=== PATIENT | female | born 1960 | race Caucasian/White ===

== ENCOUNTER 2022-03-11 22:52 | Inpatient (IN) ==
[2022-03-11] MEDS ORDERED: ONDANSETRON INJ 2 MG/ML 2 ML VIAL IV STA (23:54)
[2022-03-11] MEDS ORDERED: SODIUM CHLORIDE 0.9% 1000ML 1,000 ML IV SCH (23:54)
[2022-03-12 00:03] LABS: Basophils # (auto) 0.03 K/uL (0-0.2); Basophils % (auto) 0.3 %; Hematocrit (blood only) 43.8 % (37-47); Hemoglobin 14.6 g/dL (12.0-16.0); Immature Granulocytes # (auto) 0.02 K/uL (0.00-0.02); Immature Granulocytes % (auto) 0.2 %; Lymphocytes # (auto) 1.45 K/uL (1.2-3.4); Mean Corpuscular Hemoglobin 31.3 pg (25-34); Mean Corpuscular Hgb Conc 33.3 g/dL (32-36); Mean Corpuscular Volume 93.8 fL (80-100); Mean Platelet Volume 10.4 fL (7.4-10.4); Monocytes % (auto) 3.9 %; Neutrophils # (auto) 8.34 K/uL (1.4-6.5); Neutrophils % (auto) 80.6 %; Platelet Count 206 K/uL (130-400); RDW Coefficient of Variation 13.8 % (11.5-14.5); RDW Standard Deviation 47.3 fL (36.4-46.3); Red Blood Count 4.67 M/uL (4.2-5.4); White Blood Count 10.34 K/uL (4.8-10.8)
[2022-03-12 00:05] LABS: Appearance Urine Cloudy (Clear); Bacteria Urine Automated Negative (Negative); Bilirubin Urine Negative (Negative); Blood Urine Negative (Negative); Cast Urine Automated 0 /lpf (0-5); Color Urine Dark Yellow; Epithelial Cell Urine Auto >30 /lpf (0-5); Glucose Urine UA Negative (Negative); Ketones Urine Negative (Negative); Leukocyte Esterase Urine 1+ (Negative); Nitrite Urine Negative (Negative); Protein Urine Negative (Negative); Specific Gravity Urine 1.014 (1.000-1.030); Urobilinogen Urine Negative (Negative); pH Urine 7.5 (4.5-7.5)
[2022-03-12 00:22] LABS: Albumin Globulin Ratio 1.3 (0.9-2); Albumin Level 4.2 gm/dl (3.4-5.0); BUN Creatinine Ratio 22.1 (10-20); Calcium 9.5 mg/dl (8.5-10.1); Creatinine Clr Calc Pharmacy 61.6 ml/min; Est GFR (African American) 61.2 ml/min; Est GFR (Non-African American) 52.8 ml/min; Globulin 3.2 gm/dl (2.5-4.0); Potassium 4.4 mmol/L (3.5-5.1); Total Protein 7.4 gm/dl (6.0-8.3)
[2022-03-12] MEDS ORDERED: KETOROLAC TROMETHAMINE 15 MG/ML VIAL IV ONE (00:31)
[2022-03-12] MEDS ORDERED: ONDANSETRON INJ 2 MG/ML 2 ML VIAL IV STA (03:41)
[2022-03-12] MEDS ORDERED: POLYETHYLENE (MIRALAX) 17 GM PACK PO PRN (04:17)
[2022-03-12] MEDS ORDERED: ACETAMINOPHEN 325 MG TAB PO PRN (04:17)
[2022-03-12] MEDS ORDERED: ONDANSETRON INJ 2 MG/ML 2 ML VIAL IV PRN (04:17)
[2022-03-12] MEDS ORDERED: HYDROmorphone INJ 0.5 MG/0.5 ML SYR IV PRN (04:17)
[2022-03-12] MEDS ORDERED: KETOROLAC TROMETHAMINE 15 MG/ML VIAL IV PRN (04:17)
[2022-03-12] MEDS: SODIUM CHLORIDE 0.9% 1000ML 1,000 ML IV SCH ×2 (04:41→13:19)
[2022-03-12] MEDS: cefTRIAXone SODIUM 2,000 MG in DEXTROSE 5% 50 ML IV SCH (05:33)
[2022-03-12 08:25] LABS: Basophils # (auto) 0.02 K/uL (0-0.2); Basophils % (auto) 0.2 %; Eosinophils # (auto) 0.15 K/uL (0-0.5); Eosinophils % (auto) 1.8 %; Hematocrit (blood only) 40.4 % (37-47); Hemoglobin 13.4 g/dL (12.0-16.0); Immature Granulocytes # (auto) 0.02 K/uL (0.00-0.02); Immature Granulocytes % (auto) 0.2 %; Lymphocytes # (auto) 1.87 K/uL (1.2-3.4); Lymphocytes % (auto) 22.7 %; Mean Corpuscular Hemoglobin 31.9 pg (25-34); Mean Corpuscular Hgb Conc 33.2 g/dL (32-36); Mean Corpuscular Volume 96.2 fL (80-100); Mean Platelet Volume 10.6 fL (7.4-10.4); Monocytes # (auto) 0.39 K/uL (0.11-0.59); Monocytes % (auto) 4.7 %; Neutrophils # (auto) 5.77 K/uL (1.4-6.5); Neutrophils % (auto) 70.4 %; Platelet Count 171 K/uL (130-400); RDW Coefficient of Variation 13.8 % (11.5-14.5); RDW Standard Deviation 48.5 fL (36.4-46.3); White Blood Count 8.22 K/uL (4.8-10.8)
[2022-03-12 08:41] LABS: BUN Creatinine Ratio 19.5 (10-20); Calcium 8.9 mg/dl (8.5-10.1); Creatinine Clr Calc Pharmacy 58.5 ml/min; Est GFR (African American) 58.1 ml/min; Est GFR (Non-African American) 50.1 ml/min; Magnesium 2.2 mg/dl (1.7-2.4); Potassium 4.4 mmol/L (3.5-5.1)
--- NOTE | 2022-03-12 08:58 | Emergency Department Note ---
Impression & Plan Right distal ureteral calculus, Hydronephrosis of right kidney, Hydroureter, right ED Provider Note CHIEF COMPLAINT: Kidney stone HISTORY OF PRESENT ILLNESS: Gisela Johnson is a 61 year old female who presents to the Emergency Department for evaluation of a possible kidney stone as she developed a sudden onset of severe pain to her right flank radiating into her right lower abdominal quadrant at 1600 this evening. Since then, the patient has noted a constant pressure-like pain. She has also felt nauseous and vomited x1. Also states that she has had multiple bowel movements since the onset of pain but she denies having diarrhea, melena or hematochezia. Currently, she rates her discomfort as a 6/10 and states that she finally started to have some relief after taking a dose of oxycodone that was leftover from a previous prescription. The patient states that she has history of a right-sided kidney stone about a year ago and states that her symptoms feel similar to that time. She is unsure if she ever passed the stone but did not require additional follow-up regarding this. The patient otherwise denies recent fever/chills, neck pain, palpitations, shortness of breath or flank/abdominal pain prior to the onset today. No other acute complaints. REVIEW OF SYSTEMS: 10 systems were reviewed and were negative unless otherwise stated in HPI as above PHYSICAL EXAM: VITALS: Vitals are noted on the nurse's note and reviewed by myself. Hypertensive, additional vital signs stable. General: Resting in bed, no acute distress HEENT: Normocephalic, atraumatic, PERRL, EOMI, mucous membranes moist, oropharynx clear Neck: Supple, nontender, ROM intact without pain Resp: Good inspiratory effort on room air, lung sounds clear bilaterally CV: Regular rate and rhythm, normal S1/S2, peripheral pulses palpated Back: Tender to palpation and percussion over the right CVA, left side nontender Abd: Obese, soft, mild tenderness palpation over the right lower quadrant and groin. No rebound, guarding or rigidity MSK: Moving all extremities without apparent pain or difficulty Integumentary: Warm, dry, no appreciable rash Neuro: Awake, alert and oriented x 3, interacting and answering questions appropriately Differential diagnosis includes renal colic, UTI, appendicitis, diverticulitis, mesenteric ischemia, aortic pathology, infections, inflammatory bowel disease, PUD, biliary pathology, as well as other pathologies. EMERGENCY DEPARTMENT COURSE: Physical exam and history were performed. Nursing triage notes, EMR, and medication list were personally reviewed. Patient appears to have a possible kidney stone with complaints of sudden onset of severe pain to her right flank radiating into her right lower quadrant region and constant since earlier this evening. Additional history as described above. Physical exam as noted above. The patient was offered medication. IV access was established and she was given NSS 1 L, Zofran 4 mg and Toradol 15 mg. Labs were obtained and reviewed by myself as below. Of note, no concern for leukocytosis today WBC of 10.4. No concern for anemia with hemoglobin 14.6. Electrolytes WNL. Renal indices stable. LFTs nondiagnostic. Urinalysis was obtained and was yellow and cloudy in appearance. 1+ leukocyte esterase, 1030 WBCs and 510 RBCs. Also contamination with >30 epithelial cells. CAT scan of the abdomen and pelvis were obtained and reviewed by radiologist myself as below. Imaging did show an 8 mm right UVJ calculus producing moderate to marked hydronephrosis and moderate hydroureter on the right. There were additional bilateral nonobstructing renal calculi present. No other acute intra-abdominal or pelvic abnormalities identified. Upon reevaluation, the patient was feeling improved after receiving the medications as above. I discussed the results of the above findings with her at bedside. Given the large size of the calculus in the right UVJ, I do not suspect that she will be able to pass this on her own and it is caused hydronephrosis ureter. I do feel that she would benefit from continued management hospital and urological consultation. [facility] and [facility] agreed to evaluate the patient for ongoing management. The patient verbalized her understanding and agreement with the treatment plan as above. The chart was completed utilizing [employer] Speech Voice Recognition Software. Grammatical errors, random word insertions, pronoun errors, and incomplete sentences are an occasional consequence of this system due to software limitations, ambient noise, and hardware issues. Any formal questions or concerns about the content, text, or information contained within the body of this dictation should be directly addressed to the provider for clarification. Past Med/Surg History Medical History Right distal ureteral calculus Surgical History No pertinent past surgical history Social History Smoking Status: Never smoker Second Hand Exposure: No; Do You Dip or Chew Tobacco: No; Hx Alcohol Use: No Hx Substance Use: No Preferred Language: [place] Qatari Communication Ability: Effective Touch Up Worker Required: No Beliefs That Will Affect Care: None Current Living Situation: Spouse and Family Other Information That Helps Us Care for You: No Feels Safe at Home: Yes Safety Concerns: Feels Safe At This Time Assistive Devices: None Allergies Allergies Allergy/AdvReac Type Severity Reaction Status Date / Time lactase [From Dairy Aid] AdvReac Gastrointestinal Unverified 03/12/22 01:12 Upset UNKNOWN ANTIBIOTIC AdvReac Vomiting Uncoded 03/12/22 01:11 Home Meds Home Medications Medication Instructions Recorded Confirmed No Known Home Medications 03/12/22 03/12/22 Results & Data (ED) Vital Signs Vital Signs - 24 hr 03/11/22 23:07 03/12/22 01:14 Temperature 36.4 C L Temperature Source Temporal Artery Scan Pulse Rate 72 Pulse Rate [Finger] 70 Pulse Rhythm [Finger] Regular Pulse Strength [Finger] Normal Respiratory Rate 18 18 Respiratory Effort / Characteristics Non-Labored Spontaneous Respiratory Depth Normal Blood Pressure 160/88 H Blood Pressure [Right Arm] 156/81 H Blood Pressure Mean 112 Blood Pressure Mean [Right Arm] 106 Blood Pressure Position [Right Arm] Lying Pulse Oximetry 97 97 Oxygen Delivery Method Room Air Sepsis Recent Fever Within 48 Hours No Sepsis New/Unexplained Change in Mental Status N/A Sepsis Action Taken by Nursing No Action Required Laboratory Data Result diagrams: 03/12/22 08:02 03/12/22 08:02 Lab Results 03/11/22 03/11/22 03/11/22 Range/Units 23:50 23:50 23:50 WBC 10.34 (4.8-10.8) K/uL RBC 4.67 (4.2-5.4) M/uL Hgb 14.6 (12.0-16.0) g/dL Hct 43.8 (37-47) % MCV 93.8 (80-100) fL MCH 31.3 (25-34) pg MCHC 33.3 (32-36) g/dL RDW Std Deviation 47.3 H (36.4-46.3) fL RDW Coeff of Talya 13.8 (11.5-14.5) % Plt Count 206 (130-400) K/uL MPV 10.4 (7.4-10.4) fL Immature Gran % (Auto) 0.2 % Neut % (Auto) 80.6 % Lymph % (Auto) 14.0 % Garza % (Auto) 3.9 % Eos % (Auto) 1.0 % Baso % (Auto) 0.3 % Neut # (Auto) 8.34 H (1.4-6.5) K/uL Lymph # (Auto) 1.45 (1.2-3.4) K/uL Garza # (Auto) 0.40 (0.11-0.59) K/uL Eos # (Auto) 0.10 (0-0.5) K/uL Baso # (Auto) 0.03 (0-0.2) K/uL Immature Gran # (Auto) 0.02 (0.00-0.02) K/uL Sodium 135 L (136-145) mmol/L Potassium 4.4 (3.5-5.1) mmol/L Chloride 101 (98-107) mmol/L Carbon Dioxide 25 (21-32) mmol/L Anion Gap 9 (3-11) BUN 25 H (6-23) mg/dl Creatinine 1.13 (0.6-1.2) mg/dl Est Cr Clr Drug Dosing 61.6 ml/min Est GFR ( Amer) 61.2 ml/min Est GFR (Non-Af Amer) 52.8 ml/min BUN/Creatinine Ratio 22.1 H (10-20) Glucose 137 H (70-99(Fasting)) mg/dl Calcium 9.5 (8.5-10.1) mg/dl Total Bilirubin 1.0 (0.2-1.0) mg/dl AST 27 (13-39) U/L ALT 26 (7-52) U/L Alkaline Phosphatase 70 (34-104) U/L Total Protein 7.4 (6.0-8.3) gm/dl Albumin 4.2 (3.4-5.0) gm/dl Globulin 3.2 (2.5-4.0) gm/dl Albumin/Globulin Ratio 1.3 (0.9-2) Urine Color Dark Yellow Urine Appearance Cloudy A (Clear) Urine pH 7.5 (4.5-7.5) Ur Specific [place] 1.014 (1.000-1.030) Urine Protein Negative (Negative) Urine Glucose (UA) Negative (Negative) Urine Ketones Negative (Negative) Urine Blood Negative (Negative) Urine Nitrite Negative (Negative) Urine Bilirubin Negative (Negative) Urine Urobilinogen Negative (Negative) Ur Leukocyte Esterase 1+ H (Negative) Urine WBC (Auto) 10-30 H (0-5) /hpf Urine RBC (Auto) 5-10 H (0-4) /hpf U Hyaline Cast (Auto) 0 (0-5) /lpf U Epithel Cells (Auto) >30 H (0-5) /lpf Urine Bacteria (Auto) Negative (Negative) SARS-CoV-2, RNA, NAAT (NEGATIVE) 03/12/22 Range/Units 02:43 WBC (4.8-10.8) K/uL RBC (4.2-5.4) M/uL Hgb (12.0-16.0) g/dL Hct (37-47) % MCV (80-100) fL MCH (25-34) pg MCHC (32-36) g/dL RDW Std Deviation (36.4-46.3) fL RDW Coeff of Talya (11.5-14.5) % Plt Count (130-400) K/uL MPV (7.4-10.4) fL Immature Gran % (Auto) % Neut % (Auto) % Lymph % (Auto) % Garza % (Auto) % Eos % (Auto) % Baso % (Auto) % Neut # (Auto) (1.4-6.5) K/uL Lymph # (Auto) (1.2-3.4) K/uL Garza # (Auto) (0.11-0.59) K/uL Eos # (Auto) (0-0.5) K/uL Baso # (Auto) (0-0.2) K/uL Immature Gran # (Auto) (0.00-0.02) K/uL Sodium (136-145) mmol/L Potassium (3.5-5.1) mmol/L Chloride (98-107) mmol/L Carbon Dioxide (21-32) mmol/L Anion Gap (3-11) BUN (6-23) mg/dl Creatinine (0.6-1.2) mg/dl Est Cr Clr Drug Dosing ml/min Est GFR ( Amer) ml/min Est GFR (Non-Af Amer) ml/min BUN/Creatinine Ratio (10-20) Glucose (70-99(Fasting)) mg/dl Calcium (8.5-10.1) mg/dl Total Bilirubin (0.2-1.0) mg/dl AST (13-39) U/L ALT (7-52) U/L Alkaline Phosphatase (34-104) U/L Total Protein (6.0-8.3) gm/dl Albumin (3.4-5.0) gm/dl Globulin (2.5-4.0) gm/dl Albumin/Globulin Ratio (0.9-2) Urine Color Urine Appearance (Clear) Urine pH (4.5-7.5) Ur Specific [place] (1.000-1.030) Urine Protein (Negative) Urine Glucose (UA) (Negative) Urine Ketones (Negative) Urine Blood (Negative) Urine Nitrite (Negative) Urine Bilirubin (Negative) Urine Urobilinogen (Negative) Ur Leukocyte Esterase (Negative) Urine WBC (Auto) (0-5) /hpf Urine RBC (Auto) (0-4) /hpf U Hyaline Cast (Auto) (0-5) /lpf U Epithel Cells (Auto) (0-5) /lpf Urine Bacteria (Auto) (Negative) SARS-CoV-2, RNA, NAAT NEGATIVE (NEGATIVE) Administered Medications Sodium Chloride (Nss 1000ml) 1,000 mls @ 75 mls/hr IV .[id number] LAZARUS Stop: 04/11/22 04:16 Last Admin: 03/12/22 13:19 Dose: 125 mls/hr Documented by: [id number] Infusion: 03/12/22 12:41 Dose: 125 mls/hr Documented by: [id number] Admin: 03/12/22 04:41 Dose: 125 mls/hr Documented by: [id number] Ceftriaxone Sodium 2,000 mg/ (Dextrose) 70 mls @ 100 mls/hr IV Q24H LAZARUS; P rotocol Stop: 03/22/22 05:59 Last Infusion: 03/12/22 06:15 Dose: 0 mls/hr Documented by: [id number] Admin: 03/12/22 05:33 Dose: 100 mls/hr Documented by: [id number] Discontinued Medications Sodium Chloride (Nss 1000ml) 1,000 mls @ 999 mls/hr IV .[id number] LAZARUS Stop: 03/12/22 00:54 Last Infusion: 03/12/22 01:20 Dose: 0 mls/hr Documented by: [id number] Admin: 03/12/22 00:01 Dose: 999 mls/hr Documented by: [id number] Ketorolac Tromethamine (Ketorolac Tromethamine 15 Mg/Ml Vial) 15 mg IV NOW ONE Stop: 03/12/22 00:32 Last Admin: 03/12/22 00:47 Dose: 15 mg Documented by: [id number] Ondansetron HCl (Ondansetron Inj 2 Mg/Ml 2 Ml Vial) 4 mg IV NOW STA Stop: 03/11/22 23:55 Last Admin: 03/12/22 02:59 Dose: Not Given Documented by: [id number] Ondansetron HCl (Ondansetron Inj 2 Mg/Ml 2 Ml Vial) 4 mg IV NOW STA Stop: 03/12/22 03:42 Last Admin: 03/12/22 05:38 Dose: Not Given Documented by: [id number] Imaging Data Radiologist's Impression: Abdomen/Pelvis CT 03/11/22 23:53 CT abd pelvis wo con CLINICAL HISTORY: R flank pain radiating into RLQ, history stone COMPARISON STUDY: 04/21/2021 CT DOSE: 1393.73 mGy.cm TECHNIQUE: Standard CT of the Abdomen and Pelvis was performed without IV contrast. The patient did not receive oral contrast. A dose lowering technique was utilized adhering to the principles of ALARA. FINDINGS: Lung base: There is minimal right basilar atelectasis. Abdominal cavity: There is no evidence for abdominal mass, adenopathy or ascites. Liver: The liver is homogeneous in attenuation on these limited noncontrast images.. Spleen: The spleen is homogeneous in attenuation on these limited noncontrast images. Pancreas: The pancreas is homogeneous in attenuation on these limited noncontrast images. Gall Bladder: The gallbladder is absent. Adrenal glands: The adrenal glands are normal in size and attenuation on these limited noncontrast images. Kidneys: There is again swelling of the right kidney when compared to the left with perinephric stranding present. There is moderate to marked hydronephrosis and moderate hydroureter present to the level of the bladder. 8 mm calculus is seen at the right UVJ producing the obstruction present. Numerous additional nonobstructing bilateral renal calculi are present. There is no left-sided hydronephrosis. There is no gross renal mass on these limited noncontrast images. Bowel: The bowel loops are normally placed within the abdomen and pelvis without evidence for dilatation or obstruction. There is no evidence for mass lesion. There are no inflammatory changes present. There is no evidence for free air. Bladder: There is no evidence for focal bladder wall thickening, calculus or diverticulum. : There is no evidence for pelvic mass or adenopathy. Vasculature: There is no evidence for focal aneurysmal dilatation of the ab dominal aorta. Osseous structures: There is no acute osseous pathology. Degenerative changes are present within the spine with grade 1/4 spondylolisthesis of L4 on L5. IMPRESSION: 1. 8 mm right UVJ calculus producing moderate to marked hydronephrosis and moderate hydroureter on the right. 2. Additional bilateral nonobstructing renal calculi are present. 3. No other evidence for acute intra-abdominal or pelvic abnormality on these limited noncontrast images. 4. Additional nonacute findings are delineated above ACT 112: Negative or not required by law. Electronically signed by: Clayton Cha M.D. 03/12/2022 10:18 AM Discharge Plan Visit Data Chief Complaint: Kidney Stone Stated Complaint: KIDNEY STONE, FLANK PAIN ED Provider: Nancy Duenas ED Midlevel Provider: Joan Walton Discharge Problem: Right distal ureteral calculus, Hydronephrosis of right kidney, Hydroureter, right Patient Disposition: Admitted As Inpatient Discharge Instructions Interventions: ED Discharge Assessment Last Done: 03/12/22 04:04
--- NOTE | 2022-03-12 09:03 | Ultrasound Report ---
US venous doppler LE RT CLINICAL HISTORY: Right lower extremity pain and swelling COMPARISON: None available at the time of this dictation. TECHNIQUE: Right lower extremity real-time compression venous ultrasound with Color Doppler imaging. Utilizing real-time ultrasonic imaging multiple real time high-resolution ultrasonic images with comp ression and noncompression maneuvers of the deep venous system in addition to color doppler imaging w ere performed from the common femoral vein through the proximal calf veins. FINDINGS: Currently there is normal compressibility of the deep venous system from the common femoral vein thro ugh the proximal calf veins. No current evidence of acute thrombosis is identified. Impression: No evidence of deep venous thrombus. ACT 112: Negative or not required by law. Electronically signed by: Clayton Cha M.D. 03/12/2022 9:01 AM
--- NOTE | 2022-03-12 09:17 | History and Physical Report ---
DATE OF ADMISSION: 03/12/2022. CHIEF COMPLAINT: Right flank pain. HISTORY OF PRESENT ILLNESS: This is a 61-year-old female with past medical history significant for history of kidney stones, history of right lower extremity cellulitis, presents with right flank pain starting at 4:00 p.m., severe pain associated with nausea, vomiting. She almost passed out because of pain, so came to the ER and found to have 10 mm right UVJ kidney stone. Currently with the pain medications she is feeling better. She still has some uncomfortable feeling in the stomach. During the episode, she had several episodes of diarrhea. Denies any blood in the stools, no burning micturition. No fevers, no chest pain, no shortness of breath, no cough, has some headache she thinks from the pain medication. No blurred visions, no earache, no runny nose, no sore throat. Appetite is okay. No difficulty swallowing. The patient does not have PCP. ALLERGY: SHE IS ALLERGIC TO DIARY. PAST MEDICAL HISTORY: As mentioned above. PAST SURGICAL HISTORY: Cholecystectomy, tonsillectomy. MEDICATIONS: None. FAMILY HISTORY: Father has Alzheimer disease. SOCIAL HISTORY: No smoking, no alcohol. Lives with her . REVIEW OF SYSTEMS: As per HPI. Rest of review of systems is negative. PHYSICAL EXAMINATION: GENERAL: The patient is of moderate build, not in acute distress. VITAL SIGNS: Temperature 36.4, pulse 107, respiratory rate 18, blood pressure 156/81, oxygen 97% on room air. HEENT: Pupils equal, round and reactive to light. Oral mucosa moist. LUNGS: No JVD. No neck masses. CARDIOVASCULAR: S1 and S2 heard. Regular rate and rhythm. No murmur, no gallop. RESPIRATORY SYSTEM: Normal AP diameter. No accessory muscle use. No wheezing, no crackles. ABDOMEN: Soft. Bowel sounds are present, nontender, no distention. No CVA tenderness. CENTRAL NERVOUS SYSTEM: Cranial nerves II-XII grossly intact, nonfocal. EXTREMITIES: The right lower extremity is slightly more erythematous and edematous. No erythema, no tenderness seen. LABORATORY DATA: WBC 10, hemoglobin 14.6, hematocrit 43.8, platelets 206. Sodium 135, potassium 4.4, chloride 101, bicarb 25, BUN 25, creatinine 1.1, serum glucose 137, calcium 9.4, total bilirubin 1.0, AST 27, ALT 26, alkaline phosphatase 70. Urinalysis cloudy, +1 leukocyte esterase. Rapid COVID test negative. IMAGING: CT of abdomen and pelvis without contrast shows 12 x 6 x 8 mm stone at the right UVJ junction, moderate right hydroureteronephrosis and right perinephric edema, nonobstructing renal stones bilaterally. ASSESSMENT AND PLAN: This is a 61-year-old female who presents with right renal colic. 1. Right renal colic about 12 mm right ureterovesical junction kidney stone, possible urinary tract infection, placed on n.p.o., IV fluids, IV Rocephin, IV Dilaudid and IV Toradol p.r.n. Consult Urology. We will keep n.p.o. until seen by Urology and monitor in the medical floor. 2. Hypotension, possible situational. Does not have family doctor, needs to follow with doctor. 3. Morbid obesity. Needs counseling. Needs to follow up with PCP. 4. Deep venous thrombosis prophylaxis: Sequential compression devices for now. 5. The patient also has right lower extremity swelling, patient says it is going on for the last couple of weeks. No tenderness. We will get an ultrasound to rule out deep venous thrombosis. DISPOSITION: Closely monitor in the medical floor. PT/OT prior to discharge. Social Service to help with discharge planning. Job ID: [id number] [facility]
--- NOTE | 2022-03-12 10:21 | CT Scan Report ---
CT abd pelvis wo con CLINICAL HISTORY: R flank pain radiating into RLQ, history stone COMPARISON STUDY: 04/21/2021 CT DOSE: 1393.73 mGy.cm TECHNIQUE: Standard CT of the Abdomen and Pelvis was performed without IV contrast. The patient did not receive oral contrast. A dose lowering technique was utilized adhering to the principles of ANJEL Polo FINDINGS: Lung base: There is minimal right basilar atelectasis. Abdominal cavity: There is no evidence for abdominal mass, adenopathy or ascites. Liver: The liver is homogeneous in attenuation on these limited noncontrast images.. Spleen: The spleen is homogeneous in attenuation on these limited noncontrast images. Pancreas: The pancreas is homogeneous in attenuation on these limited noncontrast images. Gall Bladder: The gallbladder is absent. Adrenal glands: The adrenal glands are normal in size and attenuation on these limited noncontrast im ages. Kidneys: There is again swelling of the right kidney when compared to the left with perinephric stran ding present. There is moderate to marked hydronephrosis and moderate hydroureter present to the leve l of the bladder. 8 mm calculus is seen at the right UVJ producing the obstruction present. Numerous additional nonobstructing bilateral renal calculi are present. There is no left-sided hydronephrosis. There is no gross renal mass on these limited noncontrast images. Bowel: The bowel loops are normally placed within the abdomen and pelvis without evidence for dilatat ion or obstruction. There is no evidence for mass lesion. There are no inflammatory changes present. There is no evidence for free air. Bladder: There is no evidence for focal bladder wall thickening, calculus or diverticulum. : There is no evidence for pelvic mass or adenopathy. Vasculature: There is no evidence for focal aneurysmal dilatation of the abdominal aorta. Osseous structures: There is no acute osseous pathology. Degenerative changes are present within the spine with grade 1/4 spondylolisthesis of L4 on L5. IMPRESSION: 1. 8 mm right UVJ calculus producing moderate to marked hydronephrosis and moderate hydroureter on th e right. 2. Additional bilateral nonobstructing renal calculi are present. 3. No other evidence for acute intra-abdominal or pelvic abnormality on these limited noncontrast radha ges. 4. Additional nonacute findings are delineated above ACT 112: Negative or not required by law. Electronically signed by: Clayton Cha M.D. 03/12/2022 10:18 AM
--- NOTE | 2022-03-12 13:02 | Urology Consultation ---
Date of Consultation March 12, 2022 Assessment & Plan (1) Right distal ureteral calculus: Patient with approximately 8 mm distal right stone near the UVJ. Patient had presented with severe pain and nausea and vomiting. Has drastically improved over the last few hours. Is now complaining of being pain-free. Has been tolerating IV hydration. Discussed options for conservative measure and maximum expulsion medical therapy and symptom controlled. Discussed ESWL. Discussed Ureteroscopy with extraction and/or laser lithotripsy. Risks and benefits were discussed. Stone free rates were also discussed as well as possibility of multiple procedures. Ureteral stents were discussed as well as post-operative issues and pain management. All questions were answered. As patient has significantly improved. We will plan to set up for imaging today. Will likely be able to start diet and oral hydration depending on imaging. Will likely need followup in office in next few months if stone has passed. If not can make NPO overnight and consider stone treatment/stent. Will monitor. JEFFREY and KUB ordered. Patient complicated medical and surgical histories reviewed and summarized above. All imaging was reviewed interpreted by myself. Patient with significant hydronephrosis and hydroureter to calcification in the distal ureter likely representing stone on right side in distal ureter History of Present Illness Attending Physician: Stephon Manuel MD History of Present Illness New consultation for patient with stone, discomfort, obstruction, and ill feelings. Patient developed sudden onset of pain into flank going down and radiating into groin and back in waves comes and goes. Can be severe at times. Patient was having severe nausea with major pain episodes. Has previously had stones. Has had need for intervention in the past due to stone disease. Discussed and reviewed patient's family history for any history of stone disease. Does have family history. Also, discussed patient's medical surgery history especially related to any history of urinary issues or stone disease. Patient has history of gallstones as well with cholecystectomy. Patient was admitted and is undergoing observation. Has been undergoing maximum expulsion therapy with control with pain meds and monitoring. Patient has drastically improved over the last few hours. Is at this point nearly pain- free. Has not had considerable exacerbation of issues. Was having major episodes over the night however this is drastically improved. Patient has been monitoring for stone passage and has yet seeded with urination. Has been urinating frequently due to IV fluids. Patient has not seen any blood at this point. Allergies Allergy/AdvReac Type Severity Reaction Status Date / Time lactase [From Dairy Aid] AdvReac Gastrointestinal Unverified 03/12/22 01:12 Upset UNKNOWN ANTIBIOTIC AdvReac Vomiting Uncoded 03/12/22 01:11 Home Medications Medication Instructions Recorded Confirmed Type No Known Home Medications 03/12/22 03/12/22 History Patient History Social History Smoking Status: Never smoker Second Hand Exposure: No; Do You Dip or Chew Tobacco: No; Hx Alcohol Use: No Hx Substance Use: No Preferred Language: Ian South African Communication Ability: Effective Information Technology Account Manager Required: No Beliefs That Will Affect Care: None Current Living Situation: Spouse and Family Other Information That Helps Us Care for You: No Feels Safe at Home: Yes Safety Concerns: Feels Safe At This Time Assistive Devices: None Review of Systems Review of Systems: All systems reviewed & are unremarkable except as noted in HPI & below Physical Exam Physical Exam: General: Alert and oriented x 3 in no acute distress. Patient is well nourished and well kept. Obese. HEENT: Normocephalic Atraumatic. Inspection normal. Cranial Nerves 2-12 Grossly intact. Nares are clear. Neck is supple. Normal inspection of face. Normal inspection of neck. Neurologic: No deficits on inspection. Baseline for motor function and sensory. Psychologic: Normal affect. Respiratory: Nonlabored. No use of accessory muscles. No tachypnea or dyspnea. Cardiovascular: No tachycardia Skin: [place] and Dry. No rashes or visible lesions. Extremities: Moving without issues. No motor deficits on inspection Lymphatics: No edema Abdomen: Soft Non-distended. No acites. No rebound or guarding. Results & Data ([facility]) Vital Signs (Past 12 Hours) Vital Signs Temp Pulse Pulse Resp BP BP Pulse Ox 03/12/22 07:38 37 C 67 18 118/74 94 03/12/22 04:20 37.1 C 68 18 139/84 99 03/12/22 04:08 82 18 134/76 96 03/12/22 01:14 70 18 156/81 H 97 PG Care Time/CCT Total # of Minutes Spent Total Time Spent with Patient: Total time spent is greater than 50% in coordination of care (as documented) at patient's floor/unit and/or counseling patient: Coding Level of Care Code 11110 Inpt Consult Level 5 Diagnoses Right distal ureteral calculus N20.1
--- NOTE | 2022-03-12 14:28 | XRay Report ---
XR KUB/Abdomen 1 view CLINICAL HISTORY: Abdominal pain.. COMPARISON STUDY: No previous studies for comparison. TECHNIQUE: 2 supine radiographs were obtained. FINDINGS: There are air-filled loops of large and small bowel without evidence for disproportionate dilatation or obstruction. This can be seen with an ileus versus gastroenteritis. There is no evidence for organ omegaly or gross intra-abdominal mass. No abnormal calcifications are seen along the course of the ur inary tracts bilaterally. No acute osseous pathology. IMPRESSION: 1. Radiographic findings suspicious for ileus versus gastroenteritis. ACT 112: Negative or not required by law. Electronically signed by: Clayton Cha M.D. 03/12/2022 2:26 PM
--- NOTE | 2022-03-12 16:18 | Hospitalist Progress Note ---
Date of Service March 12, 2022 Assessment & Plan (1) Right distal ureteral calculus: Plan: Patient is a 61 yr female who presents with right renal colic. Right distal ureteral calculus Hydroureteronephrosis --CT ABD:8 mm right UVJ calculus producing moderate to marked hydronephrosis and moderate hydroureter on the right. Additional bilateral nonobstructing renal calculi are present. No other evidence for acute intra-abdominal or pelvic abnormality on these limited noncontrast images. Additional nonacute findings are delineated above --Renal USD:pending --Pain Control --Continue IV fluids Started on Flomax Appreciate urology input Needs follow-up with urology upon discharge Abnormal UA Rule out UTI Urine culture pending Empirically continue Rocephin Suspected Ileus KUB:Radiographic findings suspicious for ileus versus gastroenteritis. Monitor Recheck KUB in a.m. Hypotension possible situational Continue IV fluids Monitor Morbid obesity BMI 43 Lower Extremity Edema: Venous Doppler:No evidence of deep venous thrombus. Check ECHO DVT Px: SCDs for now Admission and Anticipated Discharge Date Admission Date: March 12, 2022 Subjective Seen and examined at bedside Flank pain resolved Denies any dysuria, hematuria, abdominal pain, chest pain, dyspnea Offers no other complaints Review of Systems Review of Systems: All systems reviewed & are unremarkable except as noted in Subjective Physical Exam Physical Exam: Physical Exam: Vitals signs as noted above General Appearance:Obese, no apparent distress Head: normocephalic, Atraumatic Eyes: normal inspection, EOMI Neck: supple, Trachea midline Respiratory/Chest: Normal breath sounds, CTA, No accessory muscle use Cardiovascular: S1, S2, No murmur Abdomen/GI:Soft, Non tender, Bowel sounds present Extremities/Musculoskeletal:normal inspection, Trace edema Neurologic/Psych:AAOX3, grossly no focal neurological deficits Skin: normal color, warm Results & Data Results & Data ([facility]) Vital Signs (Past 12 Hours) Vital Signs Temp Pulse Pulse Resp BP BP Pulse Ox 03/12/22 15:55 37 C 03/12/22 15:42 65 16 120/69 99 03/12/22 07:38 37 C 67 18 118/74 94 03/12/22 04:20 37.1 C 68 18 139/84 99 Laboratory Results Short CBC 03/11/22 03/12/22 Range/Units 23:50 08:02 WBC 10.34 8.22 (4.8-10.8) K/uL Hgb 14.6 13.4 (12.0-16.0) g/dL Hct 43.8 40.4 (37-47) % Plt Count 206 171 (130-400) K/uL BMP 03/11/22 03/12/22 23:50 08:02 Sodium 135 L 139 Potassium 4.4 4.4 Chloride 101 107 Carbon Dioxide 25 27 BUN 25 H 23 Creatinine 1.13 1.18 Glucose 137 H 107 H Calcium 9.5 8.9 Liver Function 03/11/22 Range/Units 23:50 Total Bilirubin 1.0 (0.2-1.0) mg/dl AST 27 (13-39) U/L ALT 26 (7-52) U/L Alkaline Phosphatase 70 (34-104) U/L Albumin 4.2 (3.4-5.0) gm/dl Urine 03/11/22 Range/Units 23:50 Urine Color Dark Yellow Urine Appearance Cloudy A (Clear) Urine pH 7.5 (4.5-7.5) Ur Specific [place] 1.014 (1.000-1.030) Urine Protein Negative (Negative) Urine Glucose (UA) Negative (Negative)
[2022-03-12] MEDS ORDERED: TAMSULOSIN HCL 0.4 MG CAP PO SCH (21:00)
[2022-03-13] MEDS: SODIUM CHLORIDE 0.9% 1000ML 1,000 ML IV SCH (02:34)
[2022-03-13] MEDS: cefTRIAXone SODIUM 2,000 MG in DEXTROSE 5% 50 ML IV SCH (06:21)
[2022-03-13 08:02] LABS: BUN Creatinine Ratio 19.4 (10-20); Calcium 8.7 mg/dl (8.5-10.1); Est GFR (African American) 68.4 ml/min; Potassium 4.2 mmol/L (3.5-5.1)
--- NOTE | 2022-03-13 08:03 | Ultrasound Report ---
RENAL ULTRASOUND CLINICAL HISTORY: Right flank pain. Evaluate for hydronephrosis. COMPARISON STUDY: CT of the abdomen and pelvis March 12, 2022. TECHNIQUE: Sonography of the kidneys and the urinary bladder was performed. FINDINGS: Right kidney measures 10.2 x 4.3 x 4 cm and the left kidney measures 10.3 x 5.3 x 4.6 cm. M oderate bilateral renal cortical thinning is present. Right hydronephrosis shown on CT of March 12 has resolved. Distal right ureteral calculus on that exam is not visualized but could be occult by sonography. The bilateral renal calculi shown on that exam are not well-visualized by sonography. Bl adder is obscured. IMPRESSION: 1. Resolution of right hydronephrosis since CT of March 12, 2022. Distal right ureteral calculus on CT not visualized but could be occult by sonography. 2. Bilateral renal calculi on prior CT occult by sonography. ACT 112: Negative or not required by law. Electronically signed by: Adriano Cruz M.D. 03/13/2022 8:02 AM
--- NOTE | 2022-03-13 09:48 | XRay Report ---
KUB CLINICAL HISTORY: Ileus, Renal stone COMPARISON STUDY: CT of the abdomen and pelvis and KUB March 12, 2022. FINDINGS: A 1.4 x 0.8 cm right ureterovesical junction calculus is unchanged in position since prior CT of March 12, 2022. Numerous small bilateral renal calculi are noted. There is no evidence for a bow el obstruction. No additional ureteral calculi are identified. IMPRESSION: 1. No change in position of a 1.4 x 0.8 cm right ureterovesical junction calculus. 2. Bilateral nephrolithiasis. ACT 112: Negative or not required by law. Electronically signed by: Adriano Cruz M.D. 03/13/2022 9:46 AM
--- NOTE | 2022-03-13 10:56 | Urology Progress Note ---
Date of Service March 13, 2022 Assessment & Plan (1) Right distal ureteral calculus: (2) Hydronephrosis of right kidney: Plan: 61yo F admitted with intractable right flank pain with associated nausea vomiting secondary to a 8 mm right UVJ calculus producing moderate to marked hydronephrosis and moderate hydroureter on the right. - Subjectively feeling well this morning, no reported pain. - KUB with no change in position of a 1.4 x 0.8 cm right ureterovesical junction calculus. - Renal ultrasound showing resolution of right hydronephrosis since CT of March 12, 2022, distal right ureteral calculus on CT not visualized. - Afebrile, hemodynamically stable, non-toxic appearing. - Labs reviewed - No leukocytosis, renal function normal. - Urine culture final with low counts mixed probable skin jose r. - Discussed possible acute stone management with cystoscopy and stent placement. Ureteral stents were discussed as well as post-operative issues and pain management. Discussed that she would need an additional procedure for stone treatment in the future. Risks/ benefits discussed. Plan- - Given she remains asymptomatic and is stable from a perspective, pt prefers to follow-up as an outpatient to arrange definitive stone treatment. - No acute intervention planned at this time. - OK for d/c from perspective. - Reviewed in detail signs/symptoms that would warrant return to the hospital, patient verbalized an understanding. - Patient agreeable to plan, all questions were answered. - Thank you for allowing us to participate in the acute care of Mrs. Jhonson. Please reconsult us with additional questions, concerns or changes in patient status. Admission and Anticipated Discharge Date Admission Date: March 12, 2022 Supervising Physician Co-Signing Physician Notes I have discussed Ms. Johnson's case with CHENG Garcia and agree with the above documentation. Overall she is doing well, not having any fevers and has good renal function. Since her pain is controlled, there is no indication for urgent intervention. We will plan to see her as an outpatient and discuss definitive stone management. Subjective Pt examined at bedside this AM. Awake, sitting in bedside chair on arrival. Subjectively feeling well this morning. Denies back, flank, and abdominal pain. No fevers or chills. Denies nausea or vomiting. Voiding without issue. No hematuria or dysuria. Review of Systems Constitutional: as per Subjective / HPI Gastrointestinal: as per Subjective / HPI Genitourinary: as per Subjective / HPI Physical Exam Constitutional: cooperative and comfortable; no acute distress Respiratory: normal respiratory effort; no respiratory distress and no labored breathing Gastrointestinal (Abdomen): Inspection/Auscultation: abdomen normal to inspection Percussion/Palpation: abdomen soft; abdomen nontender and no guarding Neurologic: awake Psychiatric: A+Ox3, euthymic affect Genitourinary: no CVA tenderness Results & Data ([facility]) Vital Signs (Past 12 Hours) Vital Signs Temp Pulse Resp BP BP Pulse Ox 03/13/22 08:25 36.9 C 69 16 132/80 97 03/12/22 23:17 36.9 C 66 16 118/78 97 PG Care Time/CCT Total # of Minutes Spent Total Time Spent with Patient: Total time spent is greater than 50% in coordination of care (as documented) at patient's floor/unit and/or counseling patient: Coding Level of Care Code 15480 Subseq Hosp Care Lvl 2 Diagnoses Right distal ureteral calculus N20.1 Hydronephrosis of right kidney N13.30
--- NOTE | 2022-03-13 12:59 | Hospitalist Progress Note ---
Date of Service March 13, 2022 Assessment & Plan (1) Right distal ureteral calculus: Plan: Patient is a 61 yr female who presents with right renal colic. Right distal ureteral calculus Hydroureteronephrosis --CT ABD:8 mm right UVJ calculus producing moderate to marked hydronephrosis and moderate hydroureter on the right. Additional bilateral nonobstructing renal calculi are present. No other evidence for acute intra-abdominal or pelvic abnormality on these limited noncontrast images. Additional nonacute findings are delineated above --Renal USD:Resolution of right hydronephrosis since CT of March 12, 2022. Distal right ureteral calculus on CT not visualized but could be occult by sonography. Bilateral renal calculi on prior CT occult by sonography. --Pain Control --Continue IV fluids Continue Flomax Appreciate urology input Needs follow-up with urology upon discharge KUB showed persistent ureteral stone As patient asymptomatic currently, urology recommends to follow-up with Dr. Jay as outpatient UTI ruled out Urine culture: Negative Discontinue Rocephin Suspected Ileus KUB:Radiographic findings suspicious for ileus versus gastroenteritis. Monitor Recheck KUB: No Ileus Hypotension possible situational Continue IV fluids Monitor Morbid obesity BMI 43 Lower Extremity Edema: Venous Doppler:No evidence of deep venous thrombus. DVT Px: SCDs for now Admission and Anticipated Discharge Date Admission Date: March 12, 2022 Subjective Seen and examined at bedside States feeling well today No recurrence of flank pain Discussed with urology today Denies any dysuria, hematuria, abdominal pain, chest pain, dyspnea Plan to discharge home today Review of Systems Review of Systems: All systems reviewed & are unremarkable except as noted in Subjective Physical Exam Physical Exam: Physical Exam: Vitals signs as noted above General Appearance:Obese, no apparent distress Head: normocephalic, Atraumatic Eyes: normal inspection, EOMI Neck: supple, Trachea midline Respiratory/Chest: Normal breath sounds, CTA, No accessory muscle use Cardiovascular: S1, S2, No murmur Abdomen/GI:Soft, Non tender, Bowel sounds present Extremities/Musculoskeletal:normal inspection, Trace edema Neurologic/Psych:AAOX3, grossly no focal neurological deficits Skin: normal color, warm Results & Data Results & Data ([facility]) Vital Signs (Past 12 Hours) Vital Signs Temp Pulse Resp BP Pulse Ox 03/13/22 08:25 36.9 C 69 16 132/80 97 Laboratory Results BMP 06/13/22 07:03 Sodium 138 Potassium 4.2 Chloride 107 Carbon Dioxide 25 BUN 20 Creatinine 1.03 Glucose 113 H Calcium 8.7
--- NOTE | 2022-03-13 13:05 | Discharge Summary ---
Date of Service March 13, 2022 Admission HPI Per Admitting Provider CHIEF COMPLAINT: Right flank pain. HISTORY OF PRESENT ILLNESS: This is a 61-year-old female with past medical history significant for history of kidney stones, history of right lower extremity cellulitis, presents with right flank pain starting at 4:00 p.m., severe pain associated with nausea, vomiting. She almost passed out because of pain, so came to the ER and found to have 10 mm right UVJ kidney stone. Curren tly with the pain medications she is feeling better. She still has some uncomfortable feeling in the stomach. During the episode, she had several episodes of diarrhea. Denies any blood in the stools, no burning micturition. No fevers, no chest pain, no shortness of breath, no cough, has some headache she thinks from the pain medication. No blurred visions, no earache, no runny nose, no sore throat. Appetite is okay. No difficulty swallowing. Admission Exam Per Admitting Provider PHYSICAL EXAMINATION: GENERAL: The patient is of moderate build, not in acute distress. VITAL SIGNS: Temperature 36.4, pulse 107, respiratory rate 18, blood pressure 156/81, oxygen 97% on room air. HEENT: Pupils equal, round and reactive to light. Oral mucosa moist. LUNGS: No JVD. No neck masses. CARDIOVASCULAR: S1 and S2 heard. Regular rate and rhythm. No murmur, no gallop. RESPIRATORY SYSTEM: Normal AP diameter. No accessory muscle use. No wheezing, no crackles. ABDOMEN: Soft. Bowel sounds are present, nontender, no distention. No CVA tenderness. CENTRAL NERVOUS SYSTEM: Cranial nerves II-XII grossly intact, nonfocal. EXTREMITIES: The right lower extremity is slightly more erythematous and edematous. No erythema, no tenderness seen. Principal Diagnosis Right distal ureteral calculus Hydroureteronephrosis Leg Edema Discharge Data Allergies Allergy/AdvReac Type Severity Reaction Status Date / Time lactase [From Dairy Aid] AdvReac Gastrointestinal Unverified 03/12/22 01:12 Upset UNKNOWN ANTIBIOTIC AdvReac Vomiting Uncoded 03/12/22 01:11 Consultations 03/12/22 02:49 ED Decision to Admit Stat 03/12/22 08:00 Consult Urology Routine Ordered Studies 03/11/22 23:53 CT abd pelvis wo con Urgent 03/12/22 04:17 US venous doppler LE RT Routine 03/12/22 13:00 US Renal Bladder [US renal/blad retro comp] Urgent Hospital Course (1) Right distal ureteral calculus: Patient is a 61 yr female who presents with right renal colic. Right distal ureteral calculus Hydroureteronephrosis --CT ABD:8 mm right UVJ calculus producing moderate to marked hydronephrosis and moderate hydroureter on the right. Additional bilateral nonobstructing renal calculi are present. No other evidence for acute intra-abdominal or pelvic abnormality on these limited noncontrast images. Additional nonacute findings are delineated above --Renal USD:Resolution of right hydronephrosis since CT of March 12, 2022. Distal right ureteral calculus on CT not visualized but could be occult by sonography. Bilateral renal calculi on prior CT occult by sonography. --Pain Control --Continue IV fluids Continue Flomax Appreciate urology input Needs follow-up with urology upon discharge KUB showed persistent ureteral stone As patient asymptomatic currently, urology recommends to follow-up with Dr. Jay as outpatient UTI ruled out Urine culture: Negative Discontinue Rocephin Suspected Ileus KUB:Radiographic findings suspicious for ileus versus gastroenteritis. Monitor Recheck KUB: No Ileus Hypotension possible situational Continue IV fluids Monitor Morbid obesity BMI 43 Lower Extremity Edema: Venous Doppler:No evidence of deep venous thrombus. DVT Px: SCDs for now Total Time Total Time Spent Total Time Spent (In Minutes): 40 minutes Discharge Plan Discharge Items Reason For Visit: KIDNEY STONE Discharge Diagnosis: Right distal ureteral calculus Hydroureteronephrosis Leg Edema Activity: Per Instructions section Exercise/Sports: Wait until after follow-up appointment Non-emergency contact: Primary Care Provider and Urologist Call non-emergency contact if: you have any medication questions, your symptoms worsen, your pain is not controlled, your pain is concerning for you and you have a fever Follow-up/Referrals: PCP,NO [Primary Care Provider] - Diet: Heart Healthy Addtl Attending Provider Instructions: Follow-up with your primary care physician in 1 week. Please call for appointment Follow-up with your urologist Dr. Jay as recommended. ---Your ECHO results are pending at the time of discharge. Please follow-up with your physician for results. Seek immediate medical attention if your symptoms reoccur or worsen Please take all medications as instructed on discharge list below. Please call if you have any questions or problems. You can reach a [facility] hospitalist on duty at [facility] 24 hours a day by calling [phone] [employer] Provider Instructions: Please call the urology office at [phone] with any questions, concerns or need to reschedule appointments for any reason. We are happy to assist you. The Urology office will contact you to arrange a follow-up visit. When to call [facility] Urology at [phone]: Fever of 101F or higher Pain that is not controlled with medicine Uncontrolled vomiting Problems urinating or inability to urinate Pending Studies at Discharge: Yes Studies:: ECHO Stand-Alone Forms: My [facility], Smoking Cessation Medications and DC Order Prescriptions: New tamsulosin 0.4 mg Capsule 0.4 mg PO HS Qty: 30 RF: 0 phenazopyridine [Pyridium] 100 mg tablet 100 mg PO Q8H PRN (Reason: Dysuria) 5 Days Qty: 15 RF: 0 Admission Data Admit Date/Time: 03/12/22 03:44 Attending Provider: Stephon Manuel Admit Provider: Neeraj Lambert Primary Care Provider: PCP,NO Other Providers: José Miguel Brady ; Pierre Godinez ; Seb Almonte ; Megan Espinosa ; Gabe Jay ; Hali Hester ; Torri Caraballo ; Pam Arzola ; Kofi Morrison ; Narinder Ruggiero ; Crys hKalil ; Nitza Arzola ; Min Agudelo ; Neeraj Lambert
== END 2022-03-13 13:52 | disposition home or self-care (01) | DRG 694 ==
LOC: ED 22:52 → 3E 03-12 03:44